=== PATIENT | male | born 1970 ===

== ENCOUNTER → 2020-11-17 | Outpatient (REF) ==
--- NOTE | 2020-11-18 06:41 | REP ---
INDICATION: DDD COMPARISON: None. TECHNIQUE: AP, lateral, coned-down views of the lumbar spine. FINDINGS: Three views of the lumbosacral spine demonstrate satisfactory alignment and lordosis without acute fracture / compression injury or subluxation. No significant degenerative changes are appreciated. IMPRESSION: 1. No acute fracture / compression injury or subluxation. 2. Essentially age-appropriate examination. <Electronically signed by Carlin Herron > 11/18/20 [id number]
--- NOTE | 2020-11-18 06:43 | REP ---
INDICATION: DDD COMPARISON: None. TECHNIQUE: AP, lateral, bilateral oblique and sunrise views. FINDINGS: Mild degenerative changes include increased sclerosis along the tibial plateau with minimal medial joint space narrowing. Patellofemoral joint appears relatively normal. No acute fracture or dislocation. No obvious effusion. IMPRESSION: Mild degenerative changes. <Electronically signed by Carlin Herron > 11/18/20 [id number]
== END ==
LOC: M RAD 11:31
PROVIDERS: ATTEND Internal Medicine
DX: M17.12 Unilateral primary osteoarthritis, left knee (principal); M51.37 Other intervertebral disc degeneration, lumbosacral region